=== PATIENT | male | born 1955 | race Caucasian/White ===

== ENCOUNTER → 2020-07-04 | Outpatient (CLI) | payer BC ==
[2020-07-04 12:43] LABS: Basophils # (A) 0.1 k/uL (0-0.2); Basophils % (A) 1 %; Eosinophils # (A) 0.1 k/uL (0-0.7); Eosinophils % (A) 2 %; HCT 37.8 % (39.0-53.0); HGB 12.1 gm/dL (13.0-17.5); Hypochromasia Slight; Lymphocytes # (A) 1.2 k/uL (1.0-4.8); Lymphocytes % (A) 19 %; MCH 28.7 pg (25.0-35.0); MCV 89.4 fL (80.0-100.0); Mean Platelet Volume 7.4; Monocytes # (A) 0.4 k/uL (0-1.0); Monocytes % (A) 6 %; Neutrophils # (A) 4.4 k/uL (1.3-7.7); Neutrophils % (A) 70 %; Platelet Count 233 k/uL (150-450); RBC 4.22 m/uL (4.30-5.90); RDW 15.9 % (11.5-15.5); WBC 6.3 k/uL (3.8-10.6)
[2020-07-04 12:53] LABS: Calcium 9.3 mg/dL (8.4-10.2); Potassium 4.9 mmol/L (3.5-5.1)
[2020-07-04 12:55] LABS: Amorphous Sediment,Urine Rare /hpf; Appearance,Urine Clear (Clear); Bacteria,Urine Rare /hpf; Bilirubin,Urine Negative (Negative); Blood,Urine Moderate (Negative); Color,Urine Yellow; Glucose,Urine (UA) Negative (Negative); Hyaline Casts,Urine 14 /lpf (0-2); Ketones,Urine Negative (Negative); Leukocyte Esterase,Urine Trace (Negative); Mucus,Urine Few /hpf; Nitrite,Urine Negative (Negative); Protein,Urine 1+ (Negative); RBC,Urine 73 /hpf (0-5); Squamous Epithelial Cell,Urine 1 /hpf (0-4); Urobilinogen,Urine <2.0 mg/dL (<2.0); WBC,Urine 10 /hpf (0-5)
== END | disposition home or self-care (01) ==
LOC: LABPAT 11:38
PROVIDERS: ATTEND Urology
DX: Z01.812 Encounter for preprocedural laboratory examination (principal); N20.1 Calculus of ureter; E11.9 Type 2 diabetes mellitus without complications; R31.29 Other microscopic hematuria
CPT/HCPCS: 36415; 80048; 81001; 85025; 87086

== ENCOUNTER 2020-07-11 11:05 | Day surgery (SDC) | payer BC, MEDICARE ==
[2020-07-07 13:47] VITALS: BMI 61.0
--- NOTE | 2020-07-11 09:39 | P.HPIHPCON ---
History of Present Illness H&P Date: 07/11/20 This is a 65 yo male with hx of 1 cm right sided ureteral stone, He initially presented with sepsis secondary to his obstructive stones. He underwent stent placement. He presents today for definitive stone management. Discussed with him the option of doing a ureteroscopy. Discussed with him the risk which includes but not limited to bleeding, infection, injury to the ureter. Discussed with him also risk from anesthesia. He understood all the risk and agreed to proceed with right-sided ureteroscopy with holmium laser lithotripsy, stone basketing and stent placement Consent for Procedure: I have explained the operation/procedure to the patient, including the risks, benefits, side effects, alternative therapies (including not receiving the proposed treatment or service), the likelihood of the patient achieving his/her goals, and potential recuperation problems for the procedure/sedation/analgesia, as well as any blood products, if indicated. I also explained to the patient the risks, benefits and side effects of the alternatives, as well as the risks rel ated to not receiving the proposed procedure, care, treatment, or services. Past Medical History Past Medical History: Atrial Fibrillation, COPD, Diabetes Mellitus, Hypertension, Skin Disorder, Sleep Apnea/CPAP/BIPAP Additional Past Medical History / Comment(s): gout, discoloring in both legs, edema hailey lower legs, kidney stones, History of Any Multi-Drug Resistant Organisms: None Reported Past Surgical History: AICD, Bariatric Surgery, Cardiac Ablation, EPS, Heart Ca theterization, Orthopedic Surgery Additional Past Surgical History / Comment(s): lap band surgery. LT KNEE surgery, surgery for blood clot in testicle after injury, "stent for kidney stone", "attempted cardiac ablation" Past Anesthesia/Blood Transfusion Reactions: No Reported Reaction Type of Cardiac Device: AICD Device Placement Date:: ? 4 yrs ago Smoking Status: Former smoker - Past Family History Mother Family Medical History: Cancer Additional Family Medical History / Comment(s): Breast CA Father Family Medical History: Myocardial Infarction (ND) Medications and Allergies Home Medications Medication Instructions Recorded Confirmed Type Losartan [Cozaar] 25 mg PO W/SUPPER 06/06/15 07/07/20 History Warfarin [Coumadin] 7.5 mg PO SUTUWETHSA 06/06/15 07/07/20 History metFORMIN HCL [Glucophage] 500 mg PO BID 07/14/15 07/07/20 History Furosemide [Lasix] 40 mg PO DAILY 09/12/15 07/07/20 History Atorvastatin [Lipitor] 20 mg PO HS 07/07/20 07/07/20 History Metoprolol Succinate [Toprol XL] 100 mg PO W/SUPPER 07/07/20 07/07/20 History Metoprolol Succinate [Toprol XL] 200 mg PO QAM 07/07/20 07/07/20 History Warfarin [Coumadin] 3.75 mg PO MOFR 07/07/20 07/07/20 History Allergies Allergy/AdvReac Type Severity Reaction Status Date / Time No Known Allergies Allergy Verified 07/07/20 13:28 Surgical - Exam - General well developed, well nourished, no distress, no pain - ENT normal nares, normal mucosa - Respiratory normal expansion, normal respiratory effort - Abdomen Abdomen: soft, non tender - Psychiatric oriented to time, oriented to person, oriented to place Assessment and Plan Assessment: 65 yo male with hx of right sided ureteral/renal stones -Or for right-sided ureteroscopy, holmium laser lithotripsy, stone basketing and possible stent exchange
[~2020-07-11 11:05] MED LIST: DEXAMETHASONE SOD PHOSPHATE 4 MG/ML 1 ML VIAL IV ONE; GENTAMICIN 120 MG in SODIUM CHLORIDE 0.9% 100 ML IVPB PRN; HYDROmorphone 0.5 MG/0.5 ML SYRINGE IVP PRN; LACTATED RINGERS 1,000 ML IV SCH; MIDAZOLAM 2 MG/2 ML VIAL IV PRN; ONDANSETRON 4 MG/2 ML VIAL IVP ONE
[2020-07-11 12:01] LABS: Glucose,Whole Blood 165 mg/dL (75-99)
[2020-07-11] MEDS ORDERED: LIDOCAINE 1% (10MG/ML) FOR IV START INTRADERMA ONE (12:04)
--- NOTE | 2020-07-11 12:20 | XR ---
EXAMINATION TYPE: XR KUB DATE OF EXAM: 07/11/2020 11:26 AM CLINICAL HISTORY: Preoperative exam for kidney stones TECHNIQUE: Single supine KUB image of the abdomen is obtained. COMPARISON: None. FINDINGS: 2 supine images KUB were obtained. Mild gaseous distention of the stomach. PEG tube. Nonspe cific, nonobstructive bowel gas pattern. Right ureteral stent. There is an 8 mm calculus at the right midpole. There are at least there are 2 adjacent calculi at the right lower pole measuring 6 mm and 5 mm, respectively. Right distal ureteral calculus measuring approximately 14 mm.. Probable left pelv ic phlebolith. Severe degenerative changes of the bilateral hips. IMPRESSION: Right ureteral stent. There is an 8 mm calculus at the right midpole. There are 2 right lower pole re nal calculi measuring 5 and 6 mm, respectively. There is a 14 mm calculus at the distal right ureter.
[2020-07-11] MEDS ORDERED: SUCCINYLCHOLINE CHLORIDE 100 MG/5 ML SYR IV ONE (12:57)
[2020-07-11] MEDS ORDERED: fentaNYL (PF) 50 MCG/ML 2 ML AMP ONE (12:57)
[2020-07-11] MEDS ORDERED: PROPOFOL 10 MG/ML 20 ML VIAL IV ONE (12:57)
[2020-07-11] MEDS ORDERED: MIDAZOLAM 2 MG/2 ML VIAL ONE (12:57)
[2020-07-11 13:35] LABS: INR 1.2 (<1.2); Prothrombin Time 12.6 sec (9.0-12.0)
[2020-07-11 14:29] VITALS: TEMP 97.4
--- NOTE | 2020-07-11 14:33 | P.OP ---
Date of Procedure: 07/11/20 Preoperative Diagnosis: Right sided ureteral/renal stones Postoperative Diagnosis: Same Procedure(s) Performed: Cystoscopy, right ureteroscopy, holmium laser lithotripsy, stone basketing and stent exchange Implants: 6-Polish by 28 cm stent left on a string on the right side Anesthesia: KVNG Surgeon: Albert Mcfarlane Estimated Blood Loss (ml): 5 Pathology: other (right ureteral stone) Condition: stable Disposition: PACU Indications for Procedure: This is a 65 yo male with hx of 1 cm right sided ureteral stone and multiple non-obstructive renal stones , He initially presented with sepsis secondary to his obstructive stones. He underwent stent placement. He presents today for definitive stone management. Discussed with him the option of doing a ureteroscopy. Discussed with him the risk which includes but not limited to bleeding, infection, injury to the ureter. Discussed with him also risk from anesthesia. He understood all the risk and agreed to proceed with right-sided ureteroscopy with holmium laser lithotripsy, stone basketing and stent placement Operative Findings: Large stone in the right distal ureter, additional large stone within the mid calyx, 2 additional stones within the lower calyx Description of Procedure: Patient was brought to the operating room, general anesthesia was induced. He was prepped and draped in sterile fashion and placed in dorsal lithotomy position. A cystoscopy fitted with a 21-Polish sheath was inserted per urethra, cystoscopy was performed which showed no abnormality within the bladder. Attention was then carried to the right ureteral orifice, the stent was grasped and removed to the meatus. Next a sensor wire was advanced through the stent and the stent was removed intact. Next a semirigid ureteroscope was inserted through the urethra and advanced up the right ureteral orifice, a large stone was encountered in the distal ureter. Using the holmium laser the stone was fragmented into small fragments, fragments were removed using the stone basket and sent to pathology. At this time the ureteroscope was advanced all the way up to the proximal ureter and no additional stones were encountered, pullback ureteroscopy was performed showed no injury to the ureter or any sizable ureteral fragments. Next an 1214 Polish access sheath was passed over the wire under fluoroscopy into the mid ureter, given patient's obesity, the access sheath could only be advanced to the mid ureter. Next the flexible ureteroscope was inserted through the access sheath and advanced up to the kidney. Renoscopy was performed which showed a large stone within the mid calyx and 2 additional large stones within the lower calyx. Using the holmium laser the stones were dusted into small fragments. Repeat renoscopy showed no sizable fragments or injury to the kidney. Pullback ureteroscopy was performed which showed no injury to the ureter or any ureteral fragments. As the ureteroscope was withdrawn and a sensor wire was advanced through. Next a ureteral stent was passed over the wire. The proximal curl was visualized on fluoroscopy and the distal curl was visualized using the cystoscope. The stent was left on a string. The bladder was emptied at the end of the case. Patient tolerated the procedure well was taken to PACU in stable condition
--- NOTE | 2020-07-11 15:07 | FL ---
Fluoroscopy HISTORY: Kidney stones 30 seconds fluoroscopy time supplied to the referring clinician. 2 intraoperative C-arm images docum ent the procedure. See dictated report from urology.
[2020-07-11 15:27] VITALS: PULSE 76; RESP 16
[2020-07-11 15:50] VITALS: BP 147/88
== END 2020-07-11 16:18 | disposition home or self-care (01) ==
LOC: OR 11:05
PROVIDERS: ATTEND Urology
DX: N20.1 Calculus of ureter (principal); E11.9 Type 2 diabetes mellitus without complications; I10 Essential (primary) hypertension; E78.5 Hyperlipidemia, unspecified; G47.33 Obstructive sleep apnea (adult) (pediatric); I48.21 Permanent atrial fibrillation; J44.9 Chronic obstructive pulmonary disease, unspecified; M10.9 Gout, unspecified; Z95.810 Presence of automatic (implantable) cardiac defibrillator; Z98.84 Bariatric surgery status; Z86.711 Personal history of pulmonary embolism; Z79.899 Other long term (current) drug therapy; Z79.01 Long term (current) use of anticoagulants; Z79.84 Long term (current) use of oral hypoglycemic drugs; Z98.890 Other specified postprocedural states; Z80.3 Family history of malignant neoplasm of breast; Z82.49 Family history of ischemic heart disease and other diseases of the circulatory system
CPT/HCPCS: 85610; 82365; 74018; 52356; C2625; C1894; C1769; J2250; J1100; J0690; J2405; J3010; J0330; J2704